=== PATIENT | female | born 1985 | race Caucasian/White ===

== ENCOUNTER 2017-03-09 23:31 | Inpatient (IN) | payer BC ==
[~2017-03-09] VITALS: Ht 172.7 cm; Wt 106.8 kg
[2017-03-09] MEDS ORDERED: OXYTOCIN 30 UNITS/500ML NSS IV ONE (23:49)
[2017-03-09] MEDS ORDERED: LACTATED RINGER'S 1000ML 1,000 ML IV SCH (23:59)
[2017-03-10] MEDS ORDERED: LACTATED RINGER'S 1000ML 1,000 ML IV SCH (00:18)
[2017-03-10] MEDS ORDERED: IBUPROFEN 600 MG TAB ONE (00:26)
--- NOTE | 2017-03-10 00:28 | Vaginal Delivery Summary ---
Vaginal Delivery Summary Delivery Note live male over intact perineum SHIELA at 36 weeks with precipitous delivery. Cord around neckx2 with delayed cord clamping followed by spontaneous delivery of intact placenta, No tears. EBL 100 ml. Final sponge and instrument count are correct. Mom and baby stable. cord around neck
[2017-03-10] MEDS ORDERED: OXYTOCIN 30 UNITS/500ML NSS IV PRN (00:30)
[2017-03-10] MEDS ORDERED: SUPERCREAM 0.870 % 15GM JAR EXT PRN (00:30)
[2017-03-10] MEDS ORDERED: IBUPROFEN 600 MG TAB PO PRN (00:30)
[2017-03-10] MEDS ORDERED: BENZOCAINE 20% AER SPR 82.5 GM CAN EXT PRN (00:30)
[2017-03-10] MEDS ORDERED: LANOLIN OINT EXT PRN ×2 (00:30)
[2017-03-10] MEDS ORDERED: PATIENT'S ALLERGY INFO NEEDS ENTERED SCH (00:30)
[2017-03-10] MEDS ORDERED: ACETAMINOPHEN/CODEINE 300/30MG TAB PO PRN ×2 (00:30)
[2017-03-10] MEDS ORDERED: HYDROCORTISONE ACETATE 25 MG SUPP PR PRN (00:30)
[2017-03-10] MEDS ORDERED: ACETAMINOPHEN 325 MG TAB PO PRN (00:30)
[2017-03-10] MEDS ORDERED: OXYCODONE/ACETAMINOPHEN 5-325 TAB PO PRN (00:30)
[2017-03-10 00:49] LABS: HEMATOCRIT 31.1 % (37-47); MEAN CELL VOLUME 84.7 fL (80-100); MEAN CORPUSCULAR HEMOGLOBIN 28.6 pg (25-34); MEAN CORPUSCULAR HGB CONC 33.8 g/dl (32-36); MEAN PLATELET VOLUME 10.3 fL (7.4-10.4); PLATELET COUNT 296 K/uL (130-400); RED BLOOD COUNT 3.67 M/uL (4.2-5.4)
[2017-03-10] MEDS ORDERED: PRENTAB26 PO (01:35)
[2017-03-10 01:37] VITALS: Ht 172.7 cm; Wt 106.8 kg
[2017-03-10 02:30] VITALS: BP 121/61; PULSE 83; TEMP 36.7
[2017-03-10 04:25] VITALS: BP 132/71; PULSE 85; TEMP 36.9
[2017-03-10 08:00] VITALS: BP 137/89; PULSE 80; TEMP 36.8; O2SAT 96
[2017-03-10] MEDS: FERROUS SULFATE 325 MG TAB PO SCH (08:51)
[2017-03-10] MEDS: PRENATAL VITAMIN TAB PO SCH (08:51)
[2017-03-10] MEDS: DOCUSATE SODIUM 100 MG CAP PO SCH ×2 (08:52→19:40)
[2017-03-10 12:00] VITALS: BP 125/77; PULSE 82; TEMP 36.9; O2SAT 96
[2017-03-10 15:40] VITALS: BP 135/77; PULSE 93; TEMP 36.9
[2017-03-10 23:40] VITALS: BP 131/79; PULSE 71; TEMP 36.8; O2SAT 96
--- NOTE | 2017-03-11 07:54 | OB/GYN Progress Note ---
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 Subjective conversation w/ patient, physical exam Ambulation: ambulating normally Voiding: no voiding problems Passing Gas: Yes Diet Tolerance: Regular Diet Lochia: Moderate Review of Systems Constitutional: No fever, No chills, No sweats, No weight loss, No weakness, No fatigue, No problem reported Respiratory: No cough, No sputum, No wheezing, No shortness of breath, No dyspnea on exertion, No dyspnea at rest, No hemoptysis, No problem reported Cardiac: No chest pain, No orthopnea, No PND, No edema, No claudication, No palpitations, No problem reported Breast: No see HPI, No breast lump, No change in shape, No nipple discharge, No breast pain, No problem reported Abdomen: No pain, No nausea, No vomiting, No diarrhea, No constipation, No GI bleeding, No problem reported Female : No see HPI, No dysuria, No urinary frequency, No hematuria, No incontinence, No abnormal vaginal bleeding, No vaginal discharge, No problem reported Objective Vital Signs Date Time Temp Pulse Resp B/P (MAP) Pulse Ox O2 Delivery O2 Flow Rate FiO2 03/10/17 23:40 36.8 71 20 131/79 (96) 96 Room Air 03/10/17 23:40 96 Room Air 03/10/17 15:40 Room Air 03/10/17 15:40 36.9 93 18 135/77 (96) Room Air 03/10/17 12:00 36.9 82 18 125/77 (93) 96 Room Air 03/10/17 08:00 36.8 80 18 137/89 (105) 96 Room Air 03/10/17 08:00 96 Room Air Physical Exam General Appearance: WELL-APPEARING Respiratory/Chest: chest non-tender Cardiovascular: regular rate, rhythm Abdomen: normal bowel sounds Fundus: Firm Extremities: normal range of motion Laboratory Results Last 24 Hours Test 03/11/17 07:42 Assessment and Plan Day Number: 1 Continue Routine Care: VD day #1 pt doing well No complaints anticipate disch tomorrow
[2017-03-11 08:00] VITALS: BP 127/80; PULSE 68; TEMP 37.2; O2SAT 97
[2017-03-11 08:13] LABS: HEMATOCRIT 31.3 % (37-47)
[2017-03-11] MEDS: DOCUSATE SODIUM 100 MG CAP PO SCH ×2 (08:58→19:35)
[2017-03-11] MEDS: PRENATAL VITAMIN TAB PO SCH (08:59)
[2017-03-11] MEDS: FERROUS SULFATE 325 MG TAB PO SCH (08:59)
[2017-03-11] MEDS ORDERED: MEASLES, MUMPS & RUBELLA VIRUS VIAL SQ. ONE (09:00)
[2017-03-11] MEDS ORDERED: DIPHTHERIA/TETANUS/PERTUSSIS 0.5 ML SYR/VIAL IM. ONE (09:00)
[2017-03-11] MEDS ORDERED: VARICELLA VIRUS VACCINE LIVE 1 VIAL SQ. ONE (09:00)
[2017-03-11 16:00] VITALS: BP 137/91; PULSE 78; TEMP 37; O2SAT 97
[2017-03-11] MEDS ORDERED: BISACODYL 5 MG TABEC PO SCH (20:00)
[2017-03-11 23:50] VITALS: BP_SYST 130; BP_SYST 141; BP_DIAS 85; BP_DIAS 91; PULSE 69; TEMP 36.9; O2SAT 97
[2017-03-12] MEDS ORDERED: BISACODYL 10 MG SUPP PR PRN (07:00)
[2017-03-12 07:10] VITALS: BP 131/80; PULSE 76; TEMP 36.5; O2SAT 98
[2017-03-12] MEDS: DOCUSATE SODIUM 100 MG CAP PO SCH (08:24)
[2017-03-12] MEDS: FERROUS SULFATE 325 MG TAB PO SCH (08:24)
[2017-03-12] MEDS: PRENATAL VITAMIN TAB PO SCH (08:24)
--- NOTE | 2017-03-12 09:04 | OB/GYN Progress Note ---
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 Subjective conversation w/ patient, physical exam Ambulation: ambulating normally Voiding: no voiding problems Passing Gas: Yes Diet Tolerance: Regular Diet Lochia: Small Feeding Type: Breast Feeding Pain: 0 Notes: Pain well controlled. Tolerating regular diet. Ambulating without difficulty. Would like to go home today. Objective Vital Signs Date Time Temp Pulse Resp B/P (MAP) Pulse Ox O2 Delivery O2 Flow Rate FiO2 03/12/17 07:10 98 Room Air 03/12/17 07:10 36.5 76 18 131/80 (97) 98 Room Air 03/11/17 23:50 Room Air 03/11/17 23:50 36.9 69 20 141/91 (108) 97 Room Air 130/85 (100) 03/11/17 16:00 37.0 78 18 137/91 (106) 97 Room Air 03/11/17 16:00 97 Room Air Physical Exam General Appearance: WELL-APPEARING Respiratory/Chest: chest non-tender, lungs clear Cardiovascular: regular rate, rhythm Abdomen: normal bowel sounds, soft Fundus: Firm Extremities: normal range of motion, non-tender, no calf tenderness Assessment and Plan Day Number: 2 Continue Routine Care: -D/C home today -F/U in 6 weeks.
--- NOTE | 2017-03-12 09:05 | Discharge Instructions ---
Discharge Instructions Date of Service Mar 12, 2017. Admission Reason for Admission: LABOR Discharge Discharge Diagnosis / Problem: Vaginal Delivery Discharge Goals Goal(s): Routine recovery after delivery Medications Continue Dispensed Medications: supercream, dermaplast, tucks, lansinoh Activity Recommendations Activity Limitations: per Instructions/Follow-up section . Instructions / Follow-Up Instructions / Follow-Up ACTIVITY RECOMMENDATIONS: * Gradual return to full activity over the next 2-3 weeks. * No lifting - nothing heavier than baby over the next 2-3 weeks. * Do not engage in vigorous exercise, sexual activity or sports until cleared by your physician. * Do not drive or operate any motorized equipment until cleared by your physician. * You may shower/bathe daily. BREAST CARE: If you are not breast feeding: * Wear a supportive bra 24 hours a day for one to two weeks. * Avoid stimulating your breasts and nipples as much as possible during the first few weeks after delivery. * When taking a shower, have the warm water hit your back, not breasts. * When your breasts feel full, apply ice packs. Usually three to four times a day helps ease the discomfort. * Take a mild pain medication (Tylenol/Motrin) when you are uncomfortable. If breast feeding: * Use breast milk to lubricate nipples. Lansinoh cream may be used for sore nipples. You do not need to remove cream prior to breast feeding. If using a different brand of cream, check the label for directions regarding removal of cream prior to nursing. * Wear a supportive bra. * If having problems with breasts or breast feeding, call a cloud consultant or your health care provider. EPISIOTOMY CARE: After delivery, if you have an episiotomy (stitches), the following steps will ease discomfort and aid healing. * For the first 24 hours after delivery, place ice packs next to your episiotomy to help reduce swelling. * After the first 24 hour-period, sitz baths, either portable or in the tub, are suggested. A shower with a shower arm sprayed over the episiotomy may be comforting. * [place] care should be done after each voiding and bowel movement. Squirt warm water from a plastic bottle over the perineum (region of the body between the anus and urinary opening) and pat dry. * Use Dermoplast to ease discomfort. Shake container. [place] directly over the episiotomy. * Place a Tucks on a clean sanitary pad next to your episiotomy. OVER THE COUNTER MEDICATION: * For discomfort or pain, you may use Acetaminophen (Tylenol), Ibuprofen (Advil ), or Naproxen (Aleve) following the package directions. * For constipation you may use Colace following the package directions. SPECIAL CARE INSTRUCTIONS: When you are discharged from the hospital, it is important for you to follow the instructions listed below: * During the first week at home, you should be able to care for yourself and your baby. In addition, the usual light household activities are encouraged. * Limit your activities to the way you feel. Do not try to clean the house or move furniture. Be sensible. * If you actively engage in sports and have done so up until the time of your delivery, you may resume these activities as soon as you feel able. This may take up to one month or even longer. Use good judgment. * Continue to take your vitamins for at least six weeks after the of your baby. * Your diet need not be limited unless you were on a special diet before your delivery. Breast-feeding mothers need around 2500 calories per day and at least 64-80 ounces of fluid per day (8 to 10 glasses). * You should eat foods from the four major food groups. Crash diets or fad diets are to be avoided. Eating lean meats, fresh fruits and vegetables, low-fat dairy products, high fiber foods and a regular exercise program, will help you get back to your pre- weight without putting your health at risk. * Constipation is sometimes a problem after delivery. Take a mild laxative as needed. If breast feeding, Milk of Magnesia is acceptable to use. You may use a suppository or Fleets enema if no episiotomy. * A daily shower or tub bath is suggested. Be sure to thoroughly and gently dry the perineum. * A bloody vaginal discharge will usually continue until around four weeks post . A small amount of bleeding may continue for as long as six weeks. Vaginal discharge changes from the bright red bleeding after delivery to pink then brownish and finally yellowish-pink before becoming white and disappearing. * Bleeding may increase with activity. Your first period may come in 4-8 weeks. If you are breast feeding, your period may be delayed even longer. * [place] (sex) can begin whenever both you and your partner feel comfortable and do not have any form of genital infection. It is recommended that you wait until after your return appointment and discuss with your physician. If you have questions, please talk to your health care practitioner. A condom should be used to prevent infection and . * Foreplay, gentle intercourse and lubrication is very important the first several times to prevent pain. A water-based lubricant such as K-Y jelly or Astroglide may be used. * Tampons may be used six weeks after delivery. * Douching should be avoided for 6 weeks after delivery. * If you have RH negative blood and your baby is RH positive, you will receive RHOGAM by injection prior to discharge. The nurse will give you a card to keep with you that has the date and place that you received RHOGAM after delivery. * During your care, you had a Rubella screen done to check for the presence of rubella antibodies in your blood. If your test was negative, you will receive a Rubella vaccine prior to discharge. This vaccine may cause a fever, soreness at the injection site and flu-like symptoms. If these symptoms persist, notify your health care practitioner. is not advised for three months after a Rubella vaccine. There is a higher chance of having a baby with defects if conceived within three months of getting the vaccine. * If you were discharged 24 hours from delivery or before 48 hours: Visiting nurses will come to your home 48 hours after discharge to assess you and your baby. The visiting nurse will meet with you while you are in the hospital to arrange a time and get directions to your home. * Verbalizes understanding of car seat law as reviewed with patient nursing. * Car Seat hand-out given and reviewed with patient by nursing. * Shaken baby information reviewed with patient by nursing. Call you doctor if: * Heavy bleeding (saturating several pads an hour) or passing clots the size of your fist. * A fever >101 degrees F (38.3 degrees C) on two occasions four hours apart and/or chills. * Unusual pain in the pelvic or vaginal areas. * "Baby Blues" lasting longer than two weeks. If you have any questions or concerns, call your health care practitioner at . FOLLOW-UP VISIT: * Please call the office at to schedule a 6 week examination. It is important you keep this appointment. * It is important for you to make arrangements for either yearly or twice yearly check-ups thereafter. Current Hospital Diet Patient's current hospital diet: Regular OB Diet Discharge Diet Recommended Diet: Regular OB Diet Pending Studies Studies pending at discharge: no Medical Emergencies . Who to Call and When: Medical Emergencies: If at any time you feel your situation is an emergency, please call 911 immediately. . Non-Emergent Contact Non-Emergency issues call your: Primary Care Provider, Typists Supervisor . . "Provider Documentation" section prepared by Darci Mason. . VTE Core Measure Inpt VTE Proph given/why not?: Treatment not indicated
[2017-03-12 15:40] VITALS: BP 148/87; PULSE 75; TEMP 37.7
[2017-03-12 15:50] VITALS: O2SAT 98
[2017-03-12 17:50] VITALS: BP_DIAS 87; PULSE 75; TEMP 37.7
== END 2017-03-12 17:50 | disposition home or self-care (01) | DRG 775 ==
LOC: C.OPB 23:31 → C.LD 23:31 → C.OPB 03-10 00:01 → C.OBG 03-10 02:32
PROVIDERS: ADMIT Obstetrics & Gynecology; ATTEND Obstetrics & Gynecology
PROC: 10E0XZZ Delivery of Products of Conception, External Approach (ICD-10-PCS; principal; 2017-03-10)
DX: O60.14X1 Preterm labor third trimester with preterm delivery third trimester, fetus 1 (principal); O69.81X1 Labor and delivery complicated by cord around neck, without compression, fetus 1; Z37.0 Single live birth; Z3A.36 36 weeks gestation of pregnancy

== ENCOUNTER 2020-04-19 08:30 | Inpatient (IN) ==
[2020-04-19] MEDS ORDERED: OXYTOCIN 30 UNITS/500 ML BAG IV PRN ×2 (10:51→14:22)
[2020-04-19] MEDS ORDERED: LACTATED RINGER'S 1,000 ML IV PRN (10:51)
[2020-04-19 11:23] LABS: Hemoglobin 11.7 g/dL (12.0-16.0); Mean Corpuscular Hemoglobin 28.3 pg (25-34); Mean Corpuscular Hgb Conc 32.5 g/dL (32-36); Mean Platelet Volume 10.6 fL (7.4-10.4); Platelet Count 336 K/uL (130-400); RDW Coefficient of Variation 15.1 % (11.5-14.5); RDW Standard Deviation 47.1 fL (36.4-46.3); Red Blood Count 4.14 M/uL (4.2-5.4)
[2020-04-19] MEDS ORDERED: HYDROCORTISONE ACETATE 25 MG SUPP PR PRN (14:22)
[2020-04-19] MEDS ORDERED: ACETAMINOPHEN 325 MG TAB PO PRN (14:22)
[2020-04-19] MEDS ORDERED: BENZOCAINE 20% AER SPR 82.5 GM CAN EXT PRN (14:22)
[2020-04-19] MEDS ORDERED: DIPHTHERIA/TETANUS/PERTUSSIS 0.5 ML SYR/VIAL IM ONE (14:22)
[2020-04-19] MEDS ORDERED: IBUPROFEN 600 MG TAB PO PRN (14:22)
[2020-04-19] MEDS ORDERED: bisacodyL 10 MG SUPP PR PRN (14:22)
[2020-04-19] MEDS ORDERED: SUPERCREAM 0.870% 15 GM JAR EXT PRN (14:22)
--- NOTE | 2020-04-19 14:22 | Obstetrical Progress Note ---
Date of Service April 19, 2020 Assessment & Plan Admission and Anticipated Discharge Date Admission Date: April 19, 2020 Subjective Admit Note 34 F P1001 at 40.1 weeks admitted in active labor at 2-3 cm. GBS is negative. FHT CAt 1. Covid is negative. patient planning unmedicated labor. Anticipate normal delivery. Physical Exam Constitutional: WD/WN, vitals as above comfortable Results & Data ([facility]) Vital Signs (Past 12 Hours) Vital Signs Temp Pulse Resp BP 04/19/20 14:16 89 140/56 L 04/19/20 14:10 81 150/72 H 04/19/20 14:07 126 H 161/130 H 04/19/20 12:55 78 141/89 H 04/19/20 11:30 36.6 C 18 04/19/20 10:25 100 H 141/90 H 04/19/20 08:47 36.7 C 107 H 18 122/71 04/19/20 08:41 107 H 122/71 04/19/20 08:40 36.7 C 18
--- NOTE | 2020-04-19 14:24 | Delivery Summary ---
Vaginal Delivery Summary Date of Service April 19, 2020 Vaginal Delivery Summary Delivery Note live female SHIELA over intact perineum with delayed cord clamping and Apgars 9/9 with weight pending. Cord blood obtained followed by spontaneous delivery of intact placenta. No tears. EBL 200 ml. Final sponge and instrument count are correct. Mom and baby stable.
[2020-04-19] MEDS: DOCUSATE SODIUM 100 MG CAP PO SCH (21:17)
[2020-04-20 06:46] LABS: Hematocrit (blood only) 32.8 % (37-47); Hemoglobin 10.5 g/dL (12.0-16.0); Mean Corpuscular Volume 87.5 fL (80-100); Mean Platelet Volume 10.6 fL (7.4-10.4); Platelet Count 294 K/uL (130-400); RDW Coefficient of Variation 15.2 % (11.5-14.5); RDW Standard Deviation 47.9 fL (36.4-46.3); Red Blood Count 3.75 M/uL (4.2-5.4)
[2020-04-20] MEDS: DOCUSATE SODIUM 100 MG CAP PO SCH (07:35)
[2020-04-20] MEDS ORDERED: PRENATAL VITAMIN 1 TAB PO SCH (08:00)
[2020-04-20] MEDS ORDERED: FERROUS SULFATE 325 MG TAB PO SCH (08:00)
--- NOTE | 2020-04-20 08:05 | Obstetrical Progress Note ---
Date of Service April 20, 2020 Assessment & Plan Admission and Anticipated Discharge Date Admission Date: April 19, 2020 Subjective Patient is seen and examined. She feels well, no complaints. Desires d/c this afternoon Ambulating without dizziness Voiding without difficulty Tolerating regular diet with out N&V Bleeding is minimal No fever/ chills/ CP/ SOB/ N&V/ Leg pain Breast feeding without problems Vital Signs Temp Pulse Resp BP 04/20/20 03:55 36.7 C 80 20 124/79 04/19/20 23:50 36.6 C 84 20 132/78 04/19/20 20:25 36.7 C 92 H 20 134/73 Lab Results 04/19/20 04/20/20 Range/Units 11:07 06:14 WBC 16.00 H 18.10 H (4.8-10.8) K/uL RBC 4.14 L 3.75 L (4.2-5.4) M/uL Hgb 11.7 L 10.5 L (12.0-16.0) g/dL Hct 36.0 L 32.8 L (37-47) % MCV 87.0 87.5 (80-100) fL MCH 28.3 28.0 (25-34) pg MCHC 32.5 32.0 (32-36) g/dL RDW Std Deviation 47.1 H 47.9 H (36.4-46.3) fL RDW Coeff of [place]aly[place] 15.1 H 15.2 H (11.5-14.5) % Plt Count 336 294 (130-400) K/uL MPV 10.6 H 10.6 H (7.4-10.4) fL PE: General: Alert, orientedx3, NAD Abd: soft, NT, fundus firm, below Umbilicus Perineum intact, Lochia rubra minimal Ext; NT, no edema AP: 34 yo s/p , ppd# 1 VSS Afebrile doing well Continue routine care All questions were answered D/C home this afternoon Results & Data ([facility]) Vital Signs (Past 12 Hours) Vital Signs Temp Pulse Resp BP 04/20/20 03:55 36.7 C 80 20 124/79 04/19/20 23:50 36.6 C 84 20 132/78 04/19/20 20:25 36.7 C 92 H 20 134/73
[2020-04-20] MEDS ORDERED: bisacodyL 5 MG TABEC PO SCH (20:00)
== END 2020-04-20 14:35 | disposition home or self-care (01) | DRG 807 ==
LOC: OPB 08:30 → 4S1 08:33 → 4S2 17:24